=== PATIENT | female | born 2005 | race Caucasian/White ===

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

== ENCOUNTER 2024-03-17 16:56 | Outpatient (CLI) | payer OTHER, SELFPAY ==
[2024-03-21 20:09] LABS: Neisseria gonorrhoeae, NAA Negative (Negative)
== END 2024-03-17 23:59 | disposition home or self-care (01) ==
LOC: LAB.DROPOF 16:56
PROVIDERS: PCP Obstetrics & Gynecology; Visit Provider Obstetrics & Gynecology
DX: Z34.90 Encounter for supervision of normal pregnancy, unspecified, unspecified trimester (principal)
CPT/HCPCS: 87086; 87491; 87591

== ENCOUNTER 2024-03-21 14:30 | Outpatient (CLI) | payer OTHER, SELFPAY ==
--- NOTE | 2024-03-21 14:31 | US_ITS ---
PROCEDURE: US OB >= 14 WEEKS FETUS CLINICAL INDICATION: dates and possible anatomy COMPARISON: No exams were available for comparison FINDINGS: Transabdominal sonographic images of the pelvis were obtained. The following parameters are obtained: Her last menstrual period is unknown. Viable fetus in the cephalic presentation with a posterior placenta grade 1. The cervix measures 4.1 cm heart rate: 152bpm bpm. BPD: 16weeks 5days HC: 16weeks 2days AC: 16weeks 2days FL: 16weeks 6days HC/AC: 1.21 FL/BPD: 0.65 FL/AC: 0.22 Average ultrasound age 16 weeks 4 days, ARETHA 09/01/2024 Amniotic fluid: Subjectively appears normal. No obvious anomalies evident. profile seen, stomach, bladder, kidneys, three-vessel cord, four chamber heart appear normal. brain: Thalamus, choroid plexus IMPRESSION: 1. Viable fetus in the cephalic presentation with a posterior placenta grade 1. 2. The fluid is within normal limits. 3. Fetus measures 16 weeks 4 days, ARETHA will be 09/01/2024. 4. Limited anatomical scan appears normal. 5. Suggest repeat scan for complete anatomy at 20 weeks. Dictated by: Jaime Goldman MD 03/21/2024 15:50 Jaime Goldman MD in [place] 03/21/2024 15:50
== END 2024-03-21 23:59 | disposition home or self-care (01) ==
LOC: RAD 14:31
PROVIDERS: PCP Obstetrics & Gynecology; Visit Provider Obstetrics & Gynecology
DX: Z34.91 Encounter for supervision of normal pregnancy, unspecified, first trimester (principal); Z3A.16 16 weeks gestation of pregnancy
CPT/HCPCS: 76805

== ENCOUNTER 2024-05-10 14:21 | Outpatient (CLI) | payer OTHER, SELFPAY ==
--- NOTE | 2024-05-10 14:22 | US_ITS ---
PROCEDURE: US OB /MATERNAL DETAIL CLINICAL INDICATION: 20 wk + Anatomy Scan COMPARISON: US US OB >= 14 WEEKS FETUS from 03/21/2024 FINDINGS: Transabdominal sonographic images of the pelvis were obtained. From her established due date she is 23 weeks 5 days. Single viable intrauterine gestation. Breech position. Placenta: Posteriorplacenta grade 1. There is an average amount of fluid. The cervix appears satisfactory. Closed and measuring 4.5 cm in length. Complete survey performed and was unremarkable on the submitted images as in PACS. No discrete anomalies identified on survey imaging by technologist. Active fetus. Three-vessel cord with satisfactory umbilical cord insertion. 4- chamber heart noted. Situs, aortic arch, LVOT, RVOT, three-vessel view appear normal. Survey of brain & ventricles Unremarkable. Cerebellum, thalamus, choroid plexus, cisterna magna appear normal. Face and neck survey unremarkable. Profile, nasion, lips and nose appeared normal. Diaphragm and chest views unremarkable. Abdomen: Both kidneys noted and unremarkable. There is unilateral renal pelvis dilation measuring 2.8 mm considered normal. Stomach and bladder noted and satisfactory. Spine: Survey of the spine satisfactory with no anomalies identified nor imaged. Cervical, thoracic, lower spine appear normal. Both arms and legs noted. Amniotic Fluid: Adequate. MVP 3.02 cm. Measurements: Average ultrasound age 23weeks 0 days. Estimated due date by ultrasound age 0209/06/2024. Estimated weight 584g BPD = 22weeks 2days HC = 22weeks 5days AC = 23weeks 5days FL = 23weeks 2days Growth Percentile= 24 Heart Rate = 138bpm Cerebellum = 22weeks 4days Humerus = 23weeks 4days HC/AC is 1.08 FL/BPD is 0.76 FL/AC is 0.21 IMPRESSION: 1. Viable fetus in the breech presentation with a posterior placenta grade 1. 2. The fluid is within normal limits, MVP 3.02 cm. 3. Anatomical scan appears normal. 4. biometry is consistent with the dates. Dictated by: Jaime Goldman MD 05/11/2024 08:53 Jaime Goldman MD in [place] 05/11/2024 08:53
== END 2024-05-10 23:59 | disposition home or self-care (01) ==
LOC: RAD 14:22
PROVIDERS: PCP Obstetrics & Gynecology; Visit Provider Obstetrics & Gynecology
DX: Z36.3 Encounter for antenatal screening for malformations (principal); Z3A.22 22 weeks gestation of pregnancy; R82.5 Elevated urine levels of drugs, medicaments and biological substances
CPT/HCPCS: 76811

== ENCOUNTER 2024-05-27 15:49 | Outpatient (CLI) | payer OTHER, SELFPAY ==
[2024-05-27 16:21] LABS: Basophils # 0.1 K/mm3 (0-0.2); Basophils % 0.9 % (0.1-2.0); Eosinophils # 0.2 K/mm3 (0.0-0.4); Eosinophils % 1.2 % (0.1-12.0); Hematocrit 39.9 % (37.0-47.0); Hemoglobin 13.5 g/dL (12.2-16.2); Lymphocytes # 2.9 K/mm3 (0.7-4.5); Lymphocytes % 18.2 % (10-50); Mean Corpuscular HGB Conc 33.7 g/dL (31.8-35.4); Mean Corpuscular Hemoglobin 31.2 pg (27.0-31.2); Mean Corpuscular Volume 92.6 fl (81-99); Mean Platelet Volume 9.1 fl (7.4-10.4); Monocytes % 6.3 % (1.7-9.3); Neutrophils # 11.6 K/mm3 (1.8-7.8); Neutrophils % 73.5 % (37.0-80.0); Platelet Count 265 K/mm3 (142-424); Red Blood Count 4.32 M/mm3 (4.20-5.40); Red Cell Distribution Width 13.2 % (11.5-17.5); White Blood Count 15.9 K/mm3 (4.5-13.0)
[2024-05-27 16:40] LABS: MANUAL DIFFERENTIAL MANUAL DIFFERENTIAL (MANUAL DIFF)
[2024-05-27 17:15] LABS: Eosinophils % 2 % (0-3); Lymphocytes % 21 % (10-50); Monocytes % 6 % (2-9); Neutrophils % 71 % (42-76); Total Cells Counted 100
[2024-05-27 17:16] LABS: Platelet Estimate Normal; RBC Morphology Normal
[2024-05-27 22:56] LABS: HIV (1&2) Antibody Rapid NONREACTIVE (NONREACTIVE)
[2024-05-28 05:11] LABS: HCV Ab Non Reactive (Non Reactive); Hepatitis B Surface Antigen Negative (Negative)
[2024-05-28 07:29] LABS: Rubella Antibodies, IgG 3.18 index (Immune >0.99)
[2024-05-28 11:29] LABS: Rapid Plasma Reagin Ab Titer Non Reactive titer (NonRea<1:1)
== END 2024-05-27 23:59 | disposition home or self-care (01) ==
LOC: LAB 15:50
PROVIDERS: Nurse Practitioner Obstetrics & Gynecology; PCP Orthopaedic Surgery; Visit Provider Obstetrics & Gynecology
DX: Z34.90 Encounter for supervision of normal pregnancy, unspecified, unspecified trimester (principal)
CPT/HCPCS: 36415; 85007; 85025; 85027; 86593; 86762; 86803; 86850; 87340; 87389

== ENCOUNTER 2024-08-12 20:28 | Outpatient (CLI) | payer SELFPAY | END 2024-08-12 23:59 | disposition home or self-care (01) | LOC: LAB.DROPOF 20:29 | PROVIDERS: PCP Obstetrics & Gynecology; Visit Provider Obstetrics & Gynecology | DX: R82.5 Elevated urine levels of drugs, medicaments and biological substances (principal) | CPT/HCPCS: 86403 ==

== ENCOUNTER 2024-08-26 10:39 | Outpatient (CLI) | payer OTHER, SELFPAY ==
--- NOTE | 2024-08-26 10:40 | US_ITS ---
PROCEDURE: US OB BIOPHYSICAL PROFILE CLINICAL INDICATION: SGA COMPARISON: US US OB >= 14 WEEKS FETUS from 03/21/2024 US US OB /MATERNAL DETAIL from 05/10/2024 FINDINGS: Transabdominal sonographic images of the uterus were obtained. From her established due date she is 39weeks 1day. The following parameters are obtained: Viable Fetus in the cephalic presentation with a posterior placenta grade 3. Average ultrasound age is 36weeks 0 days Estimated weight 2,958g, 6 lb 8 oz The cervix measures 3.38 cm Measurements: heart Rate = 124bpm BPD = 34weeks 3days, <2 percentile HC = 36weeks 2days, <2 percentile AC = 37weeks 3days, 24 percentile FL = 35weeks 6days, <2 percentile HC/AC is 0.96 FL/BPD is 0.82 FL/AC is 0.21 13 percentile Amniotic fluid index: 11.85cm, MVP 3.92 cm Qualitative AFV:2 Breathing movements: 2 Gross Body Movements: 2 Tone: 2 Biophysical profile score: 8 Doppler evaluation of the umbilical artery: SD ratio: 2.29-2.39 Resistive index: 0.56 No obvious anomalies evident.Kidneys, profile, stomach, bladder, four-chamber heart, three-vessel cord appear normal. IMPRESSION: 1. Viable fetus in the cephalic presentation with a posterior placenta grade 3. 2. The fluid is within normal limits with an amniotic fluid index 11.85 cm, MVP 3.92 cm. 3. Biophysical profile is 8/8 with good breathing movement and movement seen. 4. SD ratio is normal 2.29-2.39. 5. There has been good interval growth with the fetus currently 13th percentile. 6. Limited anatomical scan appears normal. Dictated by: Jaime Goldman MD 08/26/2024 17:21 Jaime Goldman MD in [place] 08/26/2024 17:21
== END 2024-08-26 23:59 | disposition home or self-care (01) ==
LOC: RAD 10:40
PROVIDERS: PCP Obstetrics & Gynecology; Visit Provider Obstetrics & Gynecology
DX: O36.5930 Maternal care for other known or suspected poor fetal growth, third trimester, not applicable or unspecified (principal); Z3A.39 39 weeks gestation of pregnancy
CPT/HCPCS: 76816; 76819; 76820

== ENCOUNTER 2024-08-31 13:34 | Inpatient (IN) | payer OTHER, SELFPAY ==
[2024-08-31 13:40] VITALS: BMI 32.7
--- NOTE | 2024-08-31 13:40 | HMH.PHAINT1 ---
Pharmacy Intervention Comments: MEDICATION RECONCILIATION COMPLETED ON PATIENT USING EXTERNAL FILL HISTORY FROM PHARMACY. -SUSIE SIMMONS, VASQUEZD
[2024-08-31 14:40] VITALS: BP 124/69; PULSE 104; RESP 16; TEMP 36.8; O2SAT 97; BMI 32.9
[2024-08-31 14:41] LABS: Basophils # 0.1 K/mm3 (0-0.2); Basophils % 0.4 % (0.1-2.0); Eosinophils # 0.1 K/mm3 (0.0-0.4); Eosinophils % 0.3 % (0.1-12.0); Hematocrit 38.3 % (37.0-47.0); Hemoglobin 13.1 g/dL (12.2-16.2); Lymphocytes # 2.7 K/mm3 (0.7-4.5); Lymphocytes % 16.8 % (10-50); Mean Corpuscular HGB Conc 34.2 g/dL (31.8-35.4); Mean Corpuscular Hemoglobin 30.3 pg (27.0-31.2); Mean Corpuscular Volume 88.7 fl (81-99); Mean Platelet Volume 11.1 fl (7.4-10.4); Monocytes # 1.6 K/mm3 (0.1-1.0); Monocytes % 9.7 % (1.7-9.3); Neutrophils # 11.6 K/mm3 (1.8-7.8); Neutrophils % 71.6 % (37.0-80.0); Platelet Count 267 K/mm3 (142-424); Red Blood Count 4.32 M/mm3 (4.20-5.40); Red Cell Distribution Width 12.9 % (11.5-17.5); White Blood Count 16.2 K/mm3 (4.5-13.0)
[2024-08-31 14:44] LABS: MANUAL DIFFERENTIAL MANUAL DIFFERENTIAL (MANUAL DIFF)
[2024-08-31 14:48] LABS: Microscopic, Urine URINE MICROSCOPIC (MICROSCOPIC)
[2024-08-31 14:50] LABS: Appearance,Urine CLEAR (Clear); Bilirubin,Urine Negative (Negative); Blood, Urine Negative (Negative); Color,Urine YELLOW (Yellow); Glucose,Urine (UA) 1+ (Negative); Ketones,Urine Negative (Negative); Leukocyte Esterase,Urine Negative (Negative); Nitrate,Urine Negative (Negative); Protein,Urine Negative (Negative); Specific Gravity, Urine 1.025 (1.005-1.030); Urobilinogen,Urine 0.2 EU/dl (0.2)
[2024-08-31 14:58] LABS: Bacteria,Urine Trace /lpf; RBC,Urine Occasional #/hpf (0-3); WBC,Urine Occasional #/hpf (0-3)
[2024-08-31 15:03] LABS: Amphetamine/Metha Screen,Urine Negative ng/ml (<1000); Barbiturates Screen,Urine Negative ng/ml (<200)
[2024-08-31 15:04] LABS: Benzodiazepines Screen,Urine Negative ng/ml (<200)
[2024-08-31 15:05] LABS: Cannabinoid Screen,Urine Positive ng/ml (<50)
[2024-08-31 15:06] LABS: Cocaine Screen,Urine Negative ng/ml (<300); Methadone Screen,Urine Negative ng/ml (<300)
[2024-08-31 15:07] LABS: Opiate Screen,Urine Negative ng/ml (<300)
[2024-08-31 15:08] LABS: Phencyclidine Screen,Urine Negative ng/ml (<25)
[2024-08-31] MEDS: miSOPROStol 100MCG TABLET 25 MCG VG ×2 (15:11→20:57)
[2024-08-31 15:15] LABS: Lymphocytes % 27 % (10-50); Monocytes % 6 % (2-9); Neutrophils % 67 % (42-76); Total Cells Counted 100
[2024-08-31 15:16] LABS: Platelet Estimate Normal; RBC Morphology Normal
[2024-08-31] MEDS: NICOTINE 21MG/24HR PATCH 21 MG TD (18:17)
[2024-08-31] MEDS: hydrOXYzine pamoate 25MG CAPSULE 50 MG PO (18:17)
[2024-08-31 20:10] VITALS: BP 123/72; PULSE 103; RESP 16; TEMP 36.7; O2SAT 98
[2024-08-31 23:39] LABS: RPR W/RFX Titers Nonreactive (Nonreactive)
[2024-09-01] VITALS (7 sets, daily range): BP systolic 99–118; BP diastolic 54–72; PULSE 70–94; RESP 16–20; TEMP 36.3–36.6; O2SAT 96–99
[2024-09-01] MEDS: miSOPROStol 100MCG TABLET 25 MCG VG ×2 (01:05→06:29)
[2024-09-01] MEDS: ACETAMINOPHEN 325MG TAB 650 MG PO ×3 (01:19→22:55)
[2024-09-01] MEDS: BUTORPHANOL TARTRATE 1 MG/ML VIAL IV ×2 (02:02→04:41)
[2024-09-01] MEDS: hydrOXYzine pamoate 25MG CAPSULE 50 MG PO ×2 (06:32→12:48)
[2024-09-01] MEDS: AMPICILLIN SODIUM 2 GM in 0.9 % SODIUM CHLORIDE 100 ML IV (06:49)
[2024-09-01] MEDS: LACTATED RINGERS 1000ML 1,000 ML 250 ML IV (08:42)
--- NOTE | 2024-09-01 10:42 | P.PNANES_ITS ---
[facility] Disclaimer: The information contained in this section may have been updated after the patient was seen, as this information can be updated by other users. Medical History Encounter for related examination Surgical History History of tonsillectomy Family History Sister Cystic fibrosis Social History (Updated 08/31/24 @ 15:20 by Chelsea Saunders RN) Smoking Status: Current every day smoker tobacco type: cigarettes alcohol intake: never substance use type: denies use current occupational status: unemployed Travel in the last 8 weeks: None [facility] Anesthesia Checklist Patient Identification Patient Identification: Arm Band Structural Data Admitted From: Inpatient Planned Operative Procedure/s: Labor Epidural Consent for Planned Operative Procedure(s) Verified: Yes Verified Documents: History and Physical Additional verifications Anesthesia Reactions: No Neurological Assessment Level of Consciousness: Awake, Alert and Appropriate Anesthesia Plan Anesthesia Risk discussed: Yes Anesthesia Plan: Verified ASA Class: II Anesthesia Type: Epidural
[2024-09-01] MEDS: OXYTOCIN/RINGERS LACTATE 30 UNITS/500 ML BAG IV (10:54)
[2024-09-01] MEDS: AMPICILLIN SODIUM 1 GM in 0.9 % SODIUM CHLORIDE 50 ML IV (10:54)
[2024-09-01] MEDS: ePHEDrine SULF 50MG/ML VIAL 10 MG IV (11:57)
--- NOTE | 2024-09-01 15:21 | EXP.HP ---
History of Present Illness *Admission Date: 08/31/24 *Reason for visit:: induction *History of present illness: Kely Kumar is a 19yo at 40wk0d based on 16wk US. She presented last night for IOL with cytotec. This has been complicated by poor care here with a total of 6 visits throughout . This was also complicated by trichomoniasis infection and GBS. O+, antibody negative, rubella immune, hepatitis B negative, hepatitis C negative, RPR negative, HIV negative 1 hour GTT: not completed GBS positive [facility] Disclaimer: The information contained in this section may have been updated after the patient was seen, as this information can be updated by other users. Medical History Encounter for related examination Surgical History History of tonsillectomy Family History Sister Cystic fibrosis Social History (Updated 09/01/24 @ 10:43 by Gray Coburn CRNA) Smoking Status: Current every day smoker tobacco type: cigarettes alcohol intake: never substance use type: denies use current occupational status: unemployed Travel in the last 8 weeks: None Other Medical History Have you received the Flu Vaccine for this season: No Have you received the Pneumonia Vaccine: No Review of Systems Review of Systems Review of systems (narrative): Review of Systems Constitutional: Denies fever, chills, and sweats Eyes: Denies vision change/ pain Respiratory: Denies cough and shortness of breath Cardiovascular: Denies chest pain and lightheadedness Gastrointestinal: Admits abdominal pain with contractions. Denies nausea, vomiting. Genitourinary: Denies dysuria and incontinence Musculoskeletal: Denies shoulder pain and back pain Neurological: Denies change in speech or headaches Meds Home Medications and Allergies Home Medications ?Medication ?Instructions ?Recorded ?Confirmed ?Type famotidine 20 mg tablet 20 mg PO DAILY #30 tabs 04/28/24 08/31/24 Rx vit no.95-ferrous 1 tab PO DAILY #30 tabs 08/12/24 08/31/24 Rx fumarate 28 mg-folic acid 800 mcg tablet () ferrous sulfate 325 mg (65 mg 325 mg PO DAILY 08/31/24 08/31/24 History iron) tablet (FeroSul) New Prescriptions to Start Prescriptions: Allergies Allergy/AdvReac Type Severity Reaction Status Date / Time No Known Allergies Allergy Verified 08/25/24 13:26 Exam Data for Last 24 hours Vital signs and Labs for Last 24 Hours: Temp Pulse Resp BP Pulse Ox O2 Del Method 97.7 F 75 16 109/56 L 98 Room Air 09/01/24 04:15 09/01/24 04:15 09/01/24 04:15 09/01/24 04:15 09/01/24 04:15 09/01/24 04:15 Laboratory Results - last 24 hr 08/31/24 14:27: RPR w/Rflx to Titer Nonreactive, Antibody Screen Negative I & O for Last 24 hours: Intake & Output 08/29/24 08/30/24 08/31/24 09/01/24 23:59 23:59 23:59 23:59 Weight 178 lb 15.999 oz Narrative: General: patient is alert oriented in no acute distress and responds appropriately to questions. HEENT: NCAT, EOMI, moist mucous membranes, neck supple with full ROM Cardiovascular: RRR +S1/S2, no murmurs or rubs Pulmonary: Clear to auscultation bilaterally, nonlabored breathing, symmetric chest rise Abdominal: Gravid abdomen appropriate for gestation. No guarding, rebound, or tenderness noted. Extremities: trace edema, no tenderness or cyanosis noted Skin: Normal turgor, intact, warm. Negative for erythema, pallor, petechia, or lesions Neurologic: Negative for sensory or motor deficit Psychiatric: Normal affect, normal thought process, good judgment and insight, no depression or anxious mood appreciated. *Routine HEENT Exam Head: Present normocephalic and atraumatic Eye: Present EOMI, PERRL and normal accommodation; Absent conjunctival icterus, scleral injection, nystagmus or exophthalmos ENT: Present mucous membranes moist *Routine Respiratory Exam Respiratory: Present CTA bilaterally, normal respiratory effort, able to speak in complete sentences and symmetric chest movement; Absent accessory muscle use, decreased breath sounds, rales, respiratory distress, wheezes, distant breath sounds or diminished air movement *Routine Cardiovascular Exam Cardiovascular: Present RRR, Normal S1 and Normal S2; Absent murmur or gallop *Routine Abdominal Exam Abdominal: Present soft and normoactive bowel sounds; Absent tenderness, distended, rebound or guarding *Routine Rectal Exam Rectal:: deferred *Routine Genitalia Exam Genitalia:: normal female Assessment and Plan *Assessment and plan (1) Category II heart rate tracing during labor and delivery: Status: Acute Category: Medical Code(s): O76 - Abnormality in heart rate and rhythm complicating labor and delivery (2) Encounter for induction of labor: Status: Acute Category: Medical Code(s): Z34.90 - Encounter for supervision of normal , unspecified, unspecified trimester (3) 40 weeks gestation of : Status: Acute Category: Medical Code(s): Z3A.40 - 40 weeks gestation of (4) Meconium stained amniotic fluid, delivered, current hospitalization: Status: Acute Category: Medical Code(s): O77.0 - Labor and delivery complicated by meconium in amniotic fluid (5) Trichomoniasis of vagina: Status: Acute Category: Medical Code(s): A59.01 - Trichomonal vulvovaginitis Plan - Monitor vitals - Admit to L&D for induction of labor - Plan for induction with 25mcg of vaginal cytotec [id number] per protocol, followed by Pitocin, per protocol - Plan for augmentation of labor with AROM and pitocin if required. - External FHR and TOCO monitor - GBS +/ Blood type: O+ - Continue GBS prophylaxis with penicillin G [id number] - Hemoglobin: 13.1, Plt: 267 - Plan for epidural anesthesia - Anticipate vaginal delivery of Pt had AROM - mec stained fluid The patient continued to have recurrent late decelerations and had not made any cervical change despite adequate contractions and AROM. The fetus started to have minimal variability in the setting of recurrent late decelerations and decision was made to proceed with primary delivery. the patient has no allergies and will receive 2 g of Ancef and 500mg of IV azithromycin preoperatively. Reviewed the risk of injury to surrounding structures including the bowel, bladder, reproductive organs, and neurovascular bundles. discussed risks of VTE, anesthesia and . Discussed that if complication occured it could prolong surgery, require additional surgeries or require transfer to a tertiary care center. Patient voiced understanding. Patient and significant other voiced understanding desire to proceed
[2024-09-01] MEDS: CEFAZOLIN SODIUM 2 GM in 0.9 % SODIUM CHLORIDE 100 ML IV (15:23)
[2024-09-01] MEDS: AZITHROMYCIN 500 MG in 0.9 % SODIUM CHLORIDE 250 ML 250 MG IV (15:26)
[2024-09-01 16:03] LABS: Cord Blood PH 7.38 (7.35-7.45)
--- NOTE | 2024-09-01 16:47 | EXP.ANES.I ---
[facility] Anesthesia Record Part I Anesthesia Record I Intake, IV Amount: 2,300 Hydration: Adequate Estimated blood loss (mL): 400 Urine output (mL): 200 Blood Products used (#): none Blood Pressure: 101/69 SaO2: 97 Pulse Rate: 93 Airway Patency: Patent Respiratory Rate: 16 Temperature: 97.8 F Patient is:: Awake and Stable Stable to PACU at:: 16:40
[2024-09-01] MEDS: OXYTOCIN/RINGERS LACTATE 30 UNITS/500 ML BAG 40 UNITS IV (16:51)
--- NOTE | 2024-09-01 18:48 | P.OP_ITS ---
Date of procedure: 09/01/24 Pre-op Diagnosis:: 1. 40 weeks 0 days gestation, Cantu 2. GBS positive 3. Recent history of trichomoniasis 4. Persistent category 2 tracing with late decelerations and minimal variability, Remote from delivery 5. Induction of labor Post-op Diagnosis:: 1. 40 weeks 0 days gestation, Cantu 2. GBS positive 3. Recent history of trichomoniasis 4. Persistent category 2 tracing with late decelerations and minimal variability, Remote from delivery 5. Induction of labor Procedure performed:: Primary Delivery Surgeon:: Ashley Newberry DO Investigator Utility Bill Complaints(s):: Jaime Goldman MD ALCOHOLIC COUNSELOR:: Gray Coburn Anesthesia: epidural Estimated blood loss (mL): 600 Operative findings:: 1. Live viable male : Carroll. Weight: 6pounds 8ounces. Apgars 8 and 9 at 1 and 5 minutes respectively 2. Normal-appearing fallopian tubes and ovaries bilaterally Operative note:: Medications: 2 g of Ancef, 500mg IV Azithromycin, one dose of IM Methergine Summary: Procedure explained in its entirety. The patient was counseled on the risks and benefits of section including bleeding, vascular injury, infection, and injury to the surrounding structures. Hemorrhage requiring life saving blood transfusion resulting in blood born viral infection or allergic reaction was explained and the patient consented to blood transfusion. Possible need for further operative measures prolonging recovery time and hospitalization reviewed to include hysterectomy. Procedure explained in its entirety and patient had no further questions. Consented to procedure. The patient was taken back to the operating room where adequate epidural anesthesia was verified. Pneumatic compression stockings applied to lower extremities. Above antibiotics were administered for infection prophylaxis. She was placed in the dorsal supine position Urinary catheter was placed and found to be draining clear urine. The patient was prepped and draped in sterile fashion. Anesthesia was tested and and found to be adequate. A Pfannenstiel skin incision was made with the scalpel. Subcutaneous bleeding vessels were cauterized with the bovie. The incision was taken down to the fascia with the bovie. The fascia was knicked in the midline and sharply extended laterally. The superior aspect of the fascia was grasped with Hiwot clamps and the rectus muscle was taken down with the Bovie. The rectus muscle was sharply dissected from the midline with Mayohoney. This process was repeated inferiorly. The rectus muscles were in the midline, peritoneum was identified and entered bluntly. Cong O retractor was placed and the bladder was noted to be out of the operative field. A bladder flap was created with Metzenbaum scissors and Barbadian pickups. The lower uterine segment was easily identified, sharply incised, and entered bluntly with the surgeon's index finger. Of note this uterine segment was extremely extremely thin with no fluid the scalp from the hysterotomy site. Incision was then extended in a superior and inferior fashion by blunt separation. meconium was noted. The fetus was in cephalic presentation. The head was carefully elevated out of the pelvis. Fundal pressure was applied when head was brought into incision. The infants head was delivered without difficulty. There was a double nuchal cord as well as a body cord. The shoulder and body followed without complication. Delivery occurred at 1556. The mouth and nose were suctioned with a bulb. The umbilical cord was clamped and cut. was taken to warmer for evaluation by the systems designer. Cord blood was collected. Cord gases were collected. The placenta was delivered via fundal massage and found to be normal and intact. IV Pitocin was initiated. Inside of the uterus was gently cleared of blood and clots with lap sponge. The hysterotomy was closed with 0 Vicryl in a running locked fashion. A second imbricating layer with 0 Vicryl was placed. The lower uterine segment was still boggy and a dose of Methergine was given. The lower uterine segment was visualized and noted to be hemostatic. The ovaries and tubes were found to be normal. The posterior aspect of the uterus was cleared of blood clot with a damp lap sponge. The vesicouterine serosa was reapproximated with 2-0 Monocryl. The gutters were inspected bilaterally and cleared of blood and clots with lap sponges. The uterine incision was reinspected and hemostasis noted. Cong O retractor was removed. The peritoneum was reapproximated using a 2-0 Monocryl in a nonlocked running fashion. The fascia was closed in a running nonlocked fashion using 0 PDS. Fascia was noted as not having gaps or defects. The subcutaneous fat was closed with 2-0 Monocryl interrupted sutures x3. Skin was closed with the 4-0 Monocryl suture in a subcuticular fashion. Patient tolerated the procedure well and all counts were correct x3, per nursing. Patient will receive tap blocks and then be transported to the OB PACU for recovery and bonding. Condition: stable Disposition: PACU Specimens:: Live viable male infant Arterial and venous cord gases Cord blood Complications:: None
[2024-09-01] MEDS: OXYCODONE 5MG IMMEDIATE RELEASE TABLET 5 MG PO (18:59)
[2024-09-01] MEDS: KETOROLAC 30MG/ML VIAL 30 MG IV (22:55)
[2024-09-01] MEDS: OXYCODONE 5MG IMMEDIATE RELEASE TABLET 10 MG PO (23:00)
[2024-09-02] MEDS: KETOROLAC 30MG/ML VIAL 30 MG IV ×3 (04:55→16:30)
[2024-09-02] MEDS: OXYCODONE 5MG IMMEDIATE RELEASE TABLET 10 MG PO ×3 (04:55→18:43)
[2024-09-02 04:59] VITALS: BP 148/96; PULSE 96; RESP 20; TEMP 36.4; O2SAT 100
[2024-09-02] MEDS: ACETAMINOPHEN 500MG TAB 1000 MG PO ×3 (05:09→18:42)
[2024-09-02] MEDS: hydrOXYzine pamoate 25MG CAPSULE 50 MG PO (05:10)
[2024-09-02 06:10] LABS: Basophils # 0.1 K/mm3 (0-0.2); Basophils % 0.4 % (0.1-2.0); Eosinophils # 0.1 K/mm3 (0.0-0.4); Eosinophils % 0.4 % (0.1-12.0); Hematocrit 34.5 % (37.0-47.0); Hemoglobin 11.6 g/dL (12.2-16.2); Lymphocytes # 3.2 K/mm3 (0.7-4.5); Lymphocytes % 17.5 % (10-50); Mean Corpuscular HGB Conc 33.6 g/dL (31.8-35.4); Mean Corpuscular Hemoglobin 30.3 pg (27.0-31.2); Mean Corpuscular Volume 90.1 fl (81-99); Mean Platelet Volume 11.3 fl (7.4-10.4); Monocytes # 2.2 K/mm3 (0.1-1.0); Neutrophils # 12.6 K/mm3 (1.8-7.8); Neutrophils % 68.8 % (37.0-80.0); Platelet Count 247 K/mm3 (142-424); Red Blood Count 3.83 M/mm3 (4.20-5.40); Red Cell Distribution Width 13.1 % (11.5-17.5); White Blood Count 18.4 K/mm3 (4.5-13.0)
[2024-09-02 06:20] LABS: MANUAL DIFFERENTIAL MANUAL DIFFERENTIAL (MANUAL DIFF)
--- NOTE | 2024-09-02 07:16 | P.PNANES_ITS ---
[facility] Anesthesia Record Part II Anesthesia Record Part II Discharge Time: 17:10 Destination: Obstetric PACU nurse assessment reviewed?: Yes Patient Condition:: Good Anesthesia Complications:: None Swallowing reflex intact?: Yes Airway Patency: Patent Cyanosis?: No Blood Pressure: 100/54 SaO2: 96 Respiratory Rate: 20 Pulse Rate: 87 Temperature: 97.8 F Mental Status: Alert & Oriented Pain level:: 0 Nausea and/or vomitting:: None Intake, IV Amount: 0 Hydration: Adequate
[2024-09-02 07:17] VITALS: BP 100/54; PULSE 87; RESP 20; TEMP 36.6; O2SAT 96
[2024-09-02 07:56] LABS: Lymphocytes % 18 % (10-50); Monocytes % 7 % (2-9); Neutrophils % 75 % (42-76); Platelet Estimate Normal; RBC Morphology Normal; Total Cells Counted 100
[2024-09-02] MEDS: FAMOTIDINE 20MG TABLET 20 MG PO (10:42)
--- NOTE | 2024-09-02 12:36 | P.PN_ITS ---
Subjective *Date: 09/02/24 *Time: 12:36 Interval history: Kely Kumar is a G1, P1 day #1 following a primary low-transverse delivery at 40 weeks and 0 days gestation. was uncomplicated. Routine delivery and course. She is doing well, sitting up in bed. Patient reports that she is very sleepy and has not slept in almost 3 days -Reports pain is well-controlled with oxycodone 10 -Reports she is tolerating p.o. without nausea or vomiting. -Reports her lochia is scant. -Undecided on contraception -She is bottle-feeding her male infant -Ambulating, voiding difficulty or dysuria. Denies chest pain shortness of breath or pain in her legs. No further complaints at this time. Exam Data for Last 24 hours Vital signs and Labs for Last 24 Hours: Temp Pulse Resp BP Pulse Ox O2 Del Method 97.6 F 96 H 20 148/96 H 100 Room Air 09/02/24 04:59 09/02/24 04:59 09/02/24 07:17 09/02/24 04:59 09/02/24 04:59 09/02/24 04:59 Laboratory Results - last 24 hr 09/01/24 15:59: Cord ABG pH 7.38 09/02/24 05:38: WBC 18.4 H, RBC 3.83 L, Hgb 11.6 L, Hct 34.5 L, MCV 90.1, MCH 30.3, MCHC 33.6, RDW 13.1, Plt Count 247, MPV 11.3 H, Neut % (Auto) 68.8, Lymph % (Auto) 17.5, Forrest % (Auto) 12.0 H, Eos % (Auto) 0.4, Baso % (Auto) 0.4, Neut # (Auto) 12.6 H, Lymph # (Auto) 3.2, Forrest # (Auto) 2.2 H, Eos # (Auto) 0.1, Baso # (Auto) 0.1, Total Counted 100, Neutrophils % (Manual) 75, Lymphocytes % (Manual) 18, Monocytes % (Manual) 7, Platelet Estimate Normal, RBC Morphology Normal I & O for Last 24 hours: Intake & Output 02/04/25 02/05/25 02/06/25 02/07/25 23:59 23:59 23:59 23:59 Intake Total 2300 / 2300 0 / 0 Balance 2300 / 2300 0 / 0 Weight 178 lb 15.999 oz Narrative: General: patient is alert oriented in no acute distress and responds appropriately to questions. Appears to be in minimal pain. HEENT: NCAT, EOMI, moist mucous membranes, neck supple with full ROM Cardiovascular: RRR +S1/S2, no murmurs or rubs Pulmonary: Clear to auscultation bilaterally, nonlabored breathing, symmetric chest rise Abdominal: Fundus at the umbilicus, firm, and tenderness appropriate for the period. Extremities: trace edema, no tenderness or cyanosis noted Skin: Normal turgor, intact, warm. Negative for erythema, pallor, petechia, or lesions. Bandage covering incision Neurologic: Negative for sensory or motor deficit Psychiatric: Normal affect, normal thought process, good judgment and insight, no depression or anxious mood appreciated. Assessment and Plan *Assessment and plan (1) Meconium stained amniotic fluid, delivered, current hospitalization: Status: Acute Category: Medical Code(s): O77.0 - Labor and delivery complicated by meconium in amniotic fluid (2) 40 weeks gestation of : Status: Acute Category: Medical Code(s): Z3A.40 - 40 weeks gestation of (3) Encounter for induction of labor: Status: Acute Category: Medical Code(s): Z34.90 - Encounter for supervision of normal , unspecified, unspecified trimester (4) Category II heart rate tracing during labor and delivery: Status: Acute Category: Medical Code(s): O76 - Abnormality in heart rate and rhythm complicating labor and delivery (5) GBS (group B Streptococcus carrier), +RV culture, currently : Status: Acute Category: Medical Code(s): O99.820 - Streptococcus B carrier state complicating (6) Trichomonal vaginitis during in third trimester: Status: Acute Category: Medical Code(s): O23.593 - Infection of other part of genital tract in , third trimester; A59.01 - Trichomonal vulvovaginitis (7) : Status: Acute Qualifiers: Weeks of gestation: 22 weeks Qualified Code(s): Z3A.22 - 22 weeks gestation of Category: Medical Code(s): Z34.90 - Encounter for supervision of normal , unspecified, unspecified trimester Plan Kely is postop day #1 from a primary low-transverse delivery secondary to persistent category 2 tracing, remote from delivery. had minimal variability with recurrent late decelerations and remained at 1 cm despite 4 doses of Cytotec and Pitocin with AROM Stable. POD#1 s/p PLTCS -Doing well. VSS. Serial lochia and fundal checks. -Continue with perineal ice packs for discomfort -Hemoglobin: 13.1--> 11.6 - asymptomatic anemia noted. Vitals stable. Continue monitoring. DC with Fe -O+/antibody negative -Bottle feeding, male -Contraception: undecided -Follow-up 2 weeks for routine visit -Dispo: home in 1-3 days pending mother/ status
[2024-09-02] MEDS: SENNA 8.6MG TABLET 8.6 MG PO (13:06)
--- NOTE | 2024-09-02 15:24 | CARE MANAGER ---
Addendum entered by Mary Lou Townsend 09/08/24 08:28: Patient's cord screen is positive for THC and has been faxed to [facility]/ [facility]. Original Note: Spoke with patient at bedside today to discuss positive drug test results while . Patient states that she stopped everything but THC when she found out she was . Continues to use marijuana for anxiety and sleep. Patient currently living with her mom and dad. She states that she has everything she needs, but is interested in WICC and the HANDS program. I called and reported to CPS and intake number is [id number]. Unsure if it will picked up at this time.
[2024-09-02] MEDS: SIMETHICONE 80MG CHEWABLE TABLET 160 MG PO (16:30)
[2024-09-02] MEDS: PRENATAL MULTIVITAMIN W/IRON 1 EACH PO (16:31)
--- NOTE | 2024-09-02 17:42 | PC.NURSE ---
[facility] intake number is [id number], online report search states does not meet criteria at this time, will pass on to next shift.
[2024-09-02 20:21] VITALS: BP 119/72; PULSE 102; RESP 16; TEMP 36.6; O2SAT 97
[2024-09-02] MEDS: IBUPROFEN 400 MG TABLET 800 MG PO (22:48)
[2024-09-03] MEDS: ACETAMINOPHEN 500MG TAB 1000 MG PO (00:50)
[2024-09-03] MEDS: OXYCODONE 5MG IMMEDIATE RELEASE TABLET 10 MG PO ×2 (00:51→07:40)
[2024-09-03 04:51] VITALS: BP 108/51; PULSE 89; RESP 17; TEMP 36.5; O2SAT 97
[2024-09-03] MEDS: SIMETHICONE 80MG CHEWABLE TABLET 160 MG PO ×2 (07:46→13:05)
[2024-09-03] MEDS: IBUPROFEN 400 MG TABLET 800 MG PO (07:46)
[2024-09-03] MEDS: SENNA 8.6MG TABLET 8.6 MG PO (07:46)
[2024-09-03 07:57] VITALS: BP 123/68; PULSE 100; RESP 18; TEMP 36.7; O2SAT 98
--- NOTE | 2024-09-03 13:06 | P.DS_ITS ---
General Admission date:: 08/31/24 Discharge date: 09/03/24 HPI HPI HPI: POD # 2 Feeling well. Pain controlled. Formula feeding. Lochia is appropriate. Voiding without difficulty and passing flatus. Tolerating regular diet. Denies fever/chills, chest pain and shortness of breath. No headaches, vision changes, lightheadedness/dizziness. No lower extremity swelling. Ambulating well ad tiki. Hospital Course Hospital Course Hospital Course: Kely Kumar is a 19yo at 40wk0d based on 16wk US. She presented last night for IOL with cytotec. This has been complicated by poor care here with a total of 6 visits throughout . This was also complicated by trichomoniasis infection and GBS. During labor she had a persistent category 2 tracing with occasional late decelerations and minimal variability, remote from delivery. Decision was made to proceed with primary secondary to nonreassuring status. She underwent primary on 09/01/24. She delivered a live male baby, De Queen. Weight: 6pounds 8ounces. Apgars 8 and 9 at 1 and 5 minutes respectively. She did well /postoperatively. Pain controlled. Formula feeding. Light lochia. Voiding without difficulty and passing flatus. Tolerating regular diet. Denies fever/chills, chest pain and shortness of breath. No headaches, dizziness/lightheadedness or vision changes. Vital signs stable, afebrile. Heart regular rate and rhythm. Lungs clear to auscultation. Abdomen soft, nontender. No lower extremity swelling. Ambulating well ad tiki. Normal hospital course. She was discharged to home on POD # 2 with instructions to follow-up in the office in 2 weeks or sooner if needed. Exam Data for Last 24 hours Vital signs and Labs for Last 24 Hours: Temp Pulse Resp BP Pulse Ox O2 Del Method 98.0 F 100 H 18 123/68 98 Room Air 09/03/24 07:57 09/03/24 07:57 09/03/24 07:57 09/03/24 07:57 09/03/24 07:57 09/03/24 07:57 I & O for Last 24 hours: Intake & Output 08/31/24 09/01/24 09/02/24 09/03/24 23:59 23:59 23:59 23:59 Intake Total 2300 / 2300 0 / 0 Balance 2300 / 2300 0 / 0 Weight 178 lb 15.999 oz Constitutional Constitutional: no acute distress and cooperative *Routine HEENT Exam Head: Present normocephalic and atraumatic Eye: Absent conjunctivae pink ENT: Present mucous membranes moist *Routine Neck Exam Neck: Present full ROM *Routine Respiratory Exam Respiratory: Present CTA bilaterally and normal respiratory effort *Routine Cardiovascular Exam Cardiovascular: Present RRR *Routine Abdominal Exam Abdominal: Present soft and normoactive bowel sounds; Absent tenderness or distended Comments: Uterine findus firm and below umbilicus, Pfannenstiel incision clean/dry/intact with steri strips in place *Routine Rectal Exam Patient deferred: visual exam *Routine Exam Patient deferred: external exam *Routine Extremities Exam Extremities: Present full ROM; Absent edema or calf tenderness *Routine Neurological Exam Neurological: Present alert, moving all extremities and normal speech Routine Psychiatric Exam Psychiatric: Present normal affect and cooperative DS: Diagnosis Discharge Diagnosis (1) S/P : Status: Acute Code(s): Z98.891 - History of uterine scar from previous surgery (2) Encounter for induction of labor: Status: Acute Code(s): Z34.90 - Encounter for supervision of normal , unspecified, unspecified trimester (3) 40 weeks gestation of : Status: Acute Code(s): Z3A.40 - 40 weeks gestation of (4) Category II heart rate tracing during labor and delivery: Status: Acute Code(s): O76 - Abnormality in heart rate and rhythm complicating labor and delivery (5) Meconium stained amniotic fluid, delivered, current hospitalization: Status: Acute Code(s): O77.0 - Labor and delivery complicated by meconium in amniotic fluid (6) GBS (group B Streptococcus carrier), +RV culture, currently : Status: Acute Code(s): O99.820 - Streptococcus B carrier state complicating (7) Trichomonal vaginitis during in third trimester: Status: Acute Code(s): O23.593 - Infection of other part of genital tract in , third trimester; A59.01 - Trichomonal vulvovaginitis (8) Acute blood loss anemia: Status: Acute Code(s): D62 - Acute posthemorrhagic anemia Meds Home Medications and Allergies Home Medications ?Medication ?Instructions ?Recorded ?Confirmed ?Type famotidine 20 mg tablet 20 mg PO DAILY #30 tabs 04/28/24 08/31/24 Rx vit no.95-ferrous 1 tab PO DAILY #30 tabs 08/12/24 08/31/24 Rx fumarate 28 mg-folic acid 800 mcg tablet () ferrous sulfate 325 mg (65 mg 325 mg PO DAILY 08/31/24 08/31/24 History iron) tablet (FeroSul) ibuprofen 800 mg tablet 800 mg PO Q8H PRN pain #20 tabs 09/03/24 Rx oxycodone 5 mg tablet 5 mg PO Q4HP PRN Moderate Pain 09/03/24 Rx (4-6) #20 tabs New Prescriptions to Start Prescriptions: Bárbara Ruiz oxycodone Bárbara Ramos Allergies Allergy/AdvReac Type Severity Reaction Status Date / Time No Known Allergies Allergy Verified 08/25/24 13:26 Discharge Plan Disposition Patient Disposition: Home, Self-Care Condition: Good Discharge Order Discharge Orders: Discharge Order (Routine); Ordered 09/03/24 Ordered By: Bárbara Ramos Follow up Plan Follow up with: Ashley Newberry DO [Staff Physician] - 09/15/24 3:45 pm Prescriptions/Medication Reconciliation: New oxycodone 5 mg Tablet 5 mg PO Q4HP PRN (Reason: Moderate Pain (4-6)) Qty: 20 0RF ibuprofen 800 mg tablet 800 mg PO Q8H PRN (Reason: pain) Qty: 20 0RF Continued PNV cmb#95-ferrous fumarate-FA [] 28 mg iron- 800 mcg tablet 1 tab PO DAILY Qty: 30 1RF famotidine 20 mg tablet 20 mg PO DAILY Qty: 30 2RF ferrous sulfate [FeroSul] 325 mg (65 mg iron) tablet 325 mg PO DAILY Patient Comments: TAKE 1 TABLET BY MOUTH ONCE DAILY. Problem Reconciliation Problems Reviewed?: Yes Patient Discharge Instructions ACTIVITY: Limited activity DIET: continue same diet and regular diet Additional Instructions: Congratulations! Discharge: 1. Take 800 mg Ibuprofen every 8 hours as needed for pain. You can also take 500-1000 mg of Tylenol in between doses, every 6-8 hours. If pain persists you can take Oxycodone 5 mg, 1 tablet every 4-6 hours or more as needed. 2. Nothing in the vagina for 6 weeks - no intercourse, douching or tampons. No tub baths/hot tubs or swimming pools - Drink plenty of fluids. - No strenuous activity or driving until released by your doctor. - Don't lift anything heavier than your . 3. Reasons to return to L&D or call On-Call doctor - fever (greater than 100.4) - heavy vaginal bleeding (soaking through 1 pad in less than 2 hours) - vaginal discharge (malodorous and/or purulent) - severe headaches not resolved by medication or rest and leg tenderness/edema 4. depression/blues - Normal to feel anxious/overwhelmed for first 2 weeks - Talk to your doctor if: severe anxiety, trouble bonding with baby, withdrawing from other family members, thoughts of harming yourself or others [facility] [phone] Patient Instructions: Pre-eclampsia, Depression, DI for Print Language: Irish Providers Primary Care Provider: Hermelindo Putnam [employer] Provider: Ashley Newberry Attending Provider: Ashley Newberry
== END 2024-09-03 14:20 | disposition home or self-care (01) | DRG 787 ==
PROVIDERS: Admitting Provider Obstetrics & Gynecology; PCP Internal Medicine Cardiovascular Disease; Visit Provider Obstetrics & Gynecology
PROC: 10D00Z1 Extraction of Products of Conception, Low, Open Approach (ICD-10-PCS; CPT 59514; principal; 2024-09-01 14:00)
DX: O99.824 Streptococcus B carrier state complicating childbirth (principal); D62 Acute posthemorrhagic anemia; Z3A.40 40 weeks gestation of pregnancy; Z37.0 Single live birth; O76 Abnormality in fetal heart rate and rhythm complicating labor and delivery; O90.81 Anemia of the puerperium
CPT/HCPCS: 59514; 59025; 80307; 81001; 82800; 85007; 85025; 86592; 86850; 94761; C1758; G0283; J0290; J0456; J0595; J0666; J1885; J2250; J2405; J3010; J7050; J7120